=== PATIENT | male | born 1985 | race Caucasian/White ===

== ENCOUNTER 2017-12-07 21:23 | Inpatient (IN) | payer OTHER ==
[2017-12-07] MEDS ORDERED: ALPRAZolam TAB* 0.5 MG PO ONE ×2 (22:19→22:51)
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
[2017-12-07 22:35] LABS: ABS Basophils 0.1 10^3/ul (0-0.2); ABS Eosinophils 0.2 10^3/ul (0-0.6); ABS Lymphocytes 1.8 10^3/ul (1.0-4.8); ABS Monocytes 0.5 10^3/ul (0-0.8); ABS Neutrophils 5.5 10^3/ul (1.5-7.7); ABS Nucleated RBC 0 10^3/ul; Eosinophil % 2.2 % (0-6); Hematocrit 45 % (42-52); Hemoglobin 15.6 g/dl (14.0-18.0); Lymphocyte % 22.7 % (25-47); Mean Corpuscular HGB Conc 34 g/dl (31-36); Mean Corpuscular Hemoglobin 31 pg (27-31); Mean Corpuscular Volume 91 fL (80-94); Mean Platelet Volume 7.4 um3 (7.4-10.4); Nucleated Red Blood Cells % 0.1; Platelet Count 269 10^3/ul (150-450); Red Blood Count 4.97 10^6/ul (4.00-5.40); Red Cell Distribution Width 14 % (10.5-15)
[2017-12-07 22:55] LABS: EGFR Non-African American 121.5 (>60)
[2017-12-07] MEDS ORDERED: Buprenorphine/Naloxone 8-2 MG SL TAB* 1 TAB PO ONE (23:02)
[2017-12-08] MEDS ORDERED: ALPRAZolam TAB* 0.5 MG ONE (01:03)
[2017-12-08] MEDS ORDERED: Haloperidol INJ IV/IM* 5 MG/ML AMP ONE (04:51)
[2017-12-08] MEDS ORDERED: LORazepam INJ* 2 MG/ML 1 ML VIAL ONE (04:51)
[2017-12-08] MEDS ORDERED: Acetaminophen TAB* 325 MG PO PRN (13:32)
[2017-12-08] MEDS ORDERED: Al Hydrox/Mg Hydrox/Simet LIQ* 30 ML UDC PO PRN (13:32)
[2017-12-08] MEDS ORDERED: chlorproMAZINE TAB* 100 MG PO PRN (13:39)
[2017-12-08] MEDS ORDERED: Mouth Piece, Nicotine* 1 EACH CARTRIDGE INH ONE (14:00)
[2017-12-08] MEDS: Gabapentin CAP(*) 300 MG PO SCH ×2 (16:18→20:37)
[2017-12-08] MEDS: Buprenorphine/Naloxone 8-2 MG SL TAB* 1 TAB PO SCH (16:18)
[2017-12-08] MEDS: Nicotine Inhaler* 10 MG AMP INH PRN (16:20)
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
[2017-12-08] MEDS: Nicotine Patch Removal NOTE PATCH OFF SCH (20:43)
[2017-12-09] MEDS: Nicotine PATCH 21 MG/24 HR* PATCH TRANSDERM SCH ×2 (09:49→15:44)
[2017-12-09] MEDS: Gabapentin CAP(*) 300 MG PO SCH ×3 (09:49→20:47)
[2017-12-09] MEDS: Vitamin THERAPEUTIC TAB PO SCH (09:51)
[2017-12-09] MEDS: Buprenorphine/Naloxone 8-2 MG SL TAB* 1 TAB PO SCH ×2 (09:58→20:47)
[2017-12-09] MEDS: clonazePAM TAB(*) 1 MG PO SCH ×2 (14:31→20:46)
--- NOTE | 2017-12-09 15:53 | PN ---
Subjective - Subjective Date of Service: 12/09/17 Service Type: 08940 Hosp care 35 min high complexity Subjective: Patient presents as tangential with mood lability. He denies being agitated or threatening prior to 945. He denies overuse of xanax (however he has admitted this to outpatient providers). He reports frustration in regards to [place] government and anti-aguilar agendas. Health Therapist spoke with ANNABELLE Frances at [facility]. She states concern about his increased decompensation over the past month. Health Therapist left with Layla. Health Therapist spoke with patient's mother, Zoie Crump at [phone]. She reports being surprised by police involvement prior to admission and was not sure what had transpired. She reports noticing that he has been increasingly paranoid and isolated. She validates his concern with current political client. She is concerned about his increased anger and agitated behavior. Objective - Appearance Appearance: Obese Dysmorphic Features: No Hygiene: Mal-odorous Grooming: Disheveled - Behavior Psychomotor Activities: Normal Exhibits Abnormal Movement: No - Attitude and Relatedness Attitude and Relatedness: Psychotically Related Eye Contact: Good - Speech Quality: Pressured Latencies: Normal Quantity: Copious - Mood Patient's Decription of Mood: "Upset" - Affect Observed Affect: Expansive Affect Consistent with: Euphoria - Thought Process Patient's Thought Process: Disorganized, Circumstantial Thought Content: Yes Paranoid Ideation, No Passive Wish, No Suicidal Planning, No Homicidal Ideation - Sensorium Experiencing Hallucinations: No, Sensorium is Clear Type of Hallucinations: Visual: No, Auditory: No, Command: No - Level of Consciousness Level of Consciousness: Alert Orientation: Yes Intact, Yes Orientated to Time, Yes Orientated to Place, Yes Orientated to Person - Impulse Control Impulse Control: Impaired - Insight and Judgement Insight and Judgement: Impaired - Group Participation Particating in Group Activities: No - Medication Management Medication Management Adherence: Yes Assessment - Assessment Merits Inpatient Hospitalization: For Immediate Safety, For Stabilization, Pending Safe DC Plan Inpatient DSM-V Dx: F25.0 Clinical Impression: 32yo white male with hx of schizoaffective d/o and poor tolerance to antipsychotic medications. He presented to ED via law enforcement due to agitated and threatening behavior at outpatient setting. He has impaired insight into recent increase use of benzodiazepine and decompensation in the past two months. He merits hospitalization for immediate safety and stabilization. Plan - Plan Treatment Plan: Name: ETHAN CRUMP Birthdate: 1985 [id number] continue acute intensive psychiatric treatment. may decrease to q30min observation and allow staff pass/computer use. start benzodiazepine taper with clonazepam. hold methylphenidate. continue suboxone and gabapentin. discharge planning to include family and outpatient providers. Continued Medication Management: Different Medication Medications: Current Medications Acetaminophen (Tylenol Tab*) 650 mg PO Q4H PRN PRN Reason: for pain; or Temp >101 F Al Hydrox/Mg Hydrox/Simethicone (Maalox Plus*) 30 ml PO Q4H PRN PRN Reason: INDIGESTION Buprenorphine/Naloxone (Suboxone 8-2 Mg Sl Tab*) 1 tab.sl PO BID [facility] Chlorpromazine HCl (Thorazine Tab*) 100 mg PO Q6H PRN PRN Reason: AGITATION Clonazepam (Klonopin Tab(*)) 1 mg PO TID [facility] Last Admin: 12/09/17 14:31 Dose: 1 mg Gabapentin (Neurontin Cap(*)) 600 mg PO TID [facility] Last Admin: 12/09/17 14:32 Dose: 600 mg Multivitamins (Theragran Tab*) 1 tab PO DAILY [facility] Last Admin: 12/09/17 09:51 Dose: 1 tab Nicotine (Nicotine Inhaler*) 10 mg INH Q2H PRN PRN Reason: CRAVING Last Admin: 12/08/17 16:20 Dose: 10 mg Nicotine (Nicotine Patch 21 Mg/24 Hr*) 1 patch TRANSDERM DAILY@0800 [facility] Last Admin: 12/09/17 09:49 Dose: 1 patch Pharmacy Profile Note (Nicotine Patch Removal Note*) 1 note PATCH OFF 2100 [facility] Last Admin: 12/08/17 20:43 Dose: Not Given taper clonazepam as tolerated - Discharge Plan Discharge Plan: Outpatient Follow Up Outpatient Program: [facility]
[2017-12-09] MEDS: Nicotine Inhaler* 10 MG AMP INH PRN ×3 (17:35→22:34)
[2017-12-09] MEDS: Nicotine Patch Removal NOTE PATCH OFF SCH (20:50)
[2017-12-10] MEDS: clonazePAM TAB(*) 1 MG PO SCH ×3 (08:00→20:16)
[2017-12-10] MEDS: Nicotine PATCH 21 MG/24 HR* PATCH TRANSDERM SCH (08:00)
[2017-12-10] MEDS: Buprenorphine/Naloxone 8-2 MG SL TAB* 1 TAB PO SCH ×2 (08:01→20:17)
[2017-12-10] MEDS: Vitamin THERAPEUTIC TAB PO SCH (08:01)
[2017-12-10] MEDS: Gabapentin CAP(*) 300 MG PO SCH ×3 (08:01→20:16)
--- NOTE | 2017-12-10 14:45 | PN ---
Subjective - Subjective Date of Service: 12/10/17 Service Type: 78110 Hosp care 15 min low complexity Subjective: Ethan is seen in weekend coverage for PAZP, Lili Hill. He is perceived as med-seeking and is eager to see me to talk me into resuming his outpatient methylphenidate and alprazolam therapies. He goes on at some length about how he is intolerant he is to antipsychotic medications and how his current drug regimen has kept him out of the hospital for over two years. "You see, the clonazepam really isn't the same as the alprazolam. The alprazolam has both "gabergic" and "dopamergic" properties that even out my schizoaffective disorder. I can't be taken off it. It may even kill me." Ethan is informed that the team feels that the changes made so far in his medications are warranted by his condition and the circumstances of his admission to the hospital and that we have been in communication with his outpatient provider through the [facility] program, BERNARDO Vega. Ethan is dissatisfied with this and later stalks around the unit, shouting to himself that "people are fucking with the wrong person!" He is escorted to his room where multiple staff attempt to redirect him as he screams that we are lying about him and that he never misused alprazolam. He ultimately cools off without the need for pharmacologic intervention. He denies SI or HI. Objective - Appearance Appearance: Obese Dysmorphic Features: No Hygiene: Normal Grooming: Fairly Well Kept - Behavior Psychomotor Activities: Normal Exhibits Abnormal Movement: No - Attitude and Relatedness Attitude and Relatedness: Hostile Eye Contact: Poor - Speech Quality: Pressured Latencies: Short Quantity: Copious - Mood Patient's Decription of Mood: "Anxious" - Affect Observed Affect: Labile Affect Consistent with: Dysphoria - Thought Process Patient's Thought Process: Goal Directed Thought Content: Yes Paranoid Ideation, No Passive Wish, No Suicidal Planning, No Homicidal Ideation - Sensorium Experiencing Hallucinations: No, Sensorium is Clear Type of Hallucinations: Visual: No, Auditory: No, Command: No - Level of Consciousness Level of Consciousness: Agitated Orientation: Yes Intact, Yes Orientated to Time, Yes Orientated to Place, Yes Orientated to Person - Impulse Control Impulse Control: Poor - Insight and Judgement Insight and Judgement: Impaired - Group Participation Particating in Group Activities: Yes - Medication Management Medication Management Adherence: Yes Assessment - Assessment Merits Inpatient Hospitalization: For Immediate Safety, For Stabilization Inpatient DSM-V Dx: F25.0 Clinical Impression: 32 y.o. single, white male with a history of schizoaffective DO and polysubstance dependance who presents to the hospital, brought in by law enforcement, with severe agitation and psychosis as well as threatening behavior. Plan - Plan Treatment Plan: Name: ETHAN TAM Birthdate: 1985 [id number] The patient is on a benzodiazepine taper with clonazepam. He is receiving scheduled gabapentin and suboxone. Claims to be intolerant to multiple past trials of several antipsychotics. Remains easily agitated. Requires further inpatient-level stabilization. Continued Medication Management: Different Medication Medications: Current Medications Acetaminophen (Tylenol Tab*) 650 mg PO Q4H PRN PRN Reason: for pain; or Temp >101 F Al Hydrox/Mg Hydrox/Simethicone (Maalox Plus*) 30 ml PO Q4H PRN PRN Reason: INDIGESTION Buprenorphine/Naloxone (Suboxone 8-2 Mg Sl Tab*) 1 tab.sl PO BID [facility] Last Admin: 12/10/17 08:01 Dose: 1 tab.sl Chlorpromazine HCl (Thorazine Tab*) 100 mg PO Q6H PRN PRN Reason: AGITATION Clonazepam (Klonopin Tab(*)) 1 mg PO TID [facility] Last Admin: 12/10/17 13:11 Dose: 1 mg Gabapentin (Neurontin Cap(*)) 600 mg PO TID [facility] Last Admin: 12/10/17 13:10 Dose: 600 mg Multivitamins (Theragran Tab*) 1 tab PO DAILY [facility] Last Admin: 12/10/17 08:01 Dose: 1 tab Nicotine (Nicotine Inhaler*) 10 mg INH Q2H PRN PRN Reason: CRAVING Last Admin: 12/09/17 22:34 Dose: 10 mg Nicotine (Nicotine Patch 21 Mg/24 Hr*) 1 patch TRANSDERM DAILY@0800 [facility] Last Admin: 12/10/17 08:00 Dose: 1 patch Nicotine Polacrilex (Nicotine Gum*) 2 mg PO Q2H PRN PRN Reason: CRAVING Pharmacy Profile Note (Nicotine Patch Removal Note*) 1 note PATCH OFF 2100 [facility] Last Admin: 12/09/17 20:50 Dose: Not Given - Discharge Plan Discharge Plan: Inpatient Hospitalization Lab Results - Lab Results Lab Results: 12/07/17 12/07/17 12/08/17 22:30 22:30 01:06 WBC 8.0 RBC 4.97 Hgb 15.6 Hct 45 MCV 91 MCH 31 MCHC 34 RDW 14 Plt Count 269 MPV 7.4 Neut % (Auto) 68.6 Lymph % (Auto) 22.7 L [place] % (Auto) 5.8 Eos % (Auto) 2.2 Baso % (Auto) 0.7 Absolute Neuts (auto) 5.5 Absolute Lymphs (auto) 1.8 Absolute Monos (auto) 0.5 Absolute Eos (auto) 0.2 Absolute Basos (auto) 0.1 Absolute Nucleated RBC 0 Nucleated RBC % 0.1 Sodium 138 Potassium 4.1 Chloride 104 Carbon Dioxide 28 Anion Gap 6 BUN 15 Creatinine 0.75 Est GFR ( Amer) 147.0 Est GFR (Non-Af Amer) 121.5 BUN/Creatinine Ratio 20.0 Glucose 103 H Calcium 9.3 Total Bilirubin 0.50 AST 23 ALT 28 Alkaline Phosphatase 87 Total Protein 6.7 Albumin 4.3 Globulin 2.4 Albumin/Globulin Ratio 1.8 Urine Opiates Screen None detected Ur Barbiturates Screen None detected Ur Phencyclidine Scrn None detected Ur Amphetamines Screen None detected U Benzodiazepines Scrn Presumptive positive A Urine Cocaine Screen None detected U Cannabinoids Screen None detected Serum Alcohol < 10 12/08/17 03:30 WBC RBC Hgb Hct MCV MCH MCHC RDW Plt Count MPV Neut % (Auto) Lymph % (Auto) [place] % (Auto) Eos % (Auto) Baso % (Auto) Absolute Neuts (auto) Absolute Lymphs (auto) Absolute Monos (auto) Absolute Eos (auto) Absolute Basos (auto) Absolute Nucleated RBC Nucleated RBC % Sodium Potassium Chloride Carbon Dioxide Anion Gap BUN Creatinine Est GFR ( Amer) Est GFR (Non-Af Amer) BUN/Creatinine Ratio Glucose Calcium Total Bilirubin AST ALT Alkaline Phosphatase Total Protein Albumin Globulin Albumin/Globulin Ratio Urine Opiates Screen Ur Barbiturates Screen Ur Phencyclidine Scrn Ur Amphetamines Screen U Benzodiazepines Scrn Urine Cocaine Screen U Cannabinoids Screen Serum Alcohol < 10
[2017-12-10] MEDS: Nicotine GUM* 2 MG PO PRN ×3 (15:24→22:18)
[2017-12-10] MEDS: Nicotine Patch Removal NOTE PATCH OFF SCH (20:18)
--- NOTE | 2017-12-11 02:30 | ED ---
Progress - Consult/PCP Time Called: 02:00 Course/Dx - Diagnoses Provider Diagnoses: Schizoaffective disorder Discharge - Sign-Out/Discharge Documenting (check all that apply): Patient Departure - Discharge Plan Condition: Guarded Disposition: PSYCHIATRIC FACILITY-[facility] [place] - Billing Disposition and Condition Condition: GUARDED Disposition: Psychiatric Facility [facility] [place] - Attestation Statements Document Initiated by Scribe: No
[2017-12-11] MEDS: Buprenorphine/Naloxone 8-2 MG SL TAB* 1 TAB PO SCH ×2 (08:44→20:02)
[2017-12-11] MEDS: clonazePAM TAB(*) 1 MG PO SCH ×3 (08:44→20:02)
[2017-12-11] MEDS: Gabapentin CAP(*) 300 MG PO SCH ×3 (08:44→20:02)
[2017-12-11] MEDS: Vitamin THERAPEUTIC TAB PO SCH (08:44)
[2017-12-11] MEDS: Nicotine PATCH 21 MG/24 HR* PATCH TRANSDERM SCH (08:45)
[2017-12-11] MEDS: Nicotine GUM* 2 MG PO PRN ×5 (09:11→22:17)
[2017-12-11] MEDS: Nicotine Patch Removal NOTE PATCH OFF SCH (22:14)
[2017-12-12 08:23] VITALS: BP 117/71
[2017-12-12] MEDS: Nicotine PATCH 21 MG/24 HR* PATCH TRANSDERM SCH (08:36)
[2017-12-12] MEDS: Gabapentin CAP(*) 300 MG PO SCH ×2 (08:37→13:16)
[2017-12-12] MEDS: Vitamin THERAPEUTIC TAB PO SCH (08:38)
[2017-12-12] MEDS: Buprenorphine/Naloxone 8-2 MG SL TAB* 1 TAB PO SCH (08:38)
[2017-12-12] MEDS ORDERED: clonazePAM TAB(*) 1 MG PO SCH (09:00)
[2017-12-12] MEDS: Nicotine GUM* 2 MG PO PRN (09:40)
--- NOTE | 2017-12-12 11:41 | PN ---
[facility]: Group Therapy Note - Service Type Service Type: [id number] Group Psychotherapy - Cognitive Behavioral Group Therapy ( CBT):Patient presented in CBT programming as disorganized and disruptive in discussion and needed repeated redirection to attend to presented materials.
--- NOTE | 2017-12-14 00:43 | DS ---
CC: [facility]; [facility]; and Dr. Partida. DISCHARGE SUMMARY: DATE OF ADMISSION: 12/08/17 DATE OF DISCHARGE: 12/12/17 SUPERVISING PHYSICIAN: Elbert Nickerson MD DISCHARGE DIAGNOSES: Schizoaffective disorder bipolar type, history of opiate use disorder in remiss ion, cluster C personality traits. CONDITION AT TIME OF DISCHARGE: Improved. The patient is calm and behavioral control. His mother i s present for discussion during visiting hours. We discussed patient's presentation over the weekend including hyperactive, impulsive, and intrusive behaviors. We discussed the potential for a mood st abilizer. The patient declines need for further medications. He emphatically states that he has rem ained out of the hospital for 2 years on current medication regimen. He becomes circumstantial in re gards to use of alprazolam. He has presented a written statement that he read to myself in front of his mother. The patient reports desire to be discharged from the hospital. He states that he decomp ensates when in setting such as this. He is denying need for substance use treatment other than curr ent providers at [facility] and [facility]. The patient becomes argumentative, b ut is redirectable. We discussed current medication regimen. The patient states that there is no ev idence in regards to abuse and dependence on benzodiazepines. This publications writer gives evidence to the cont rary. The patient denies being manic or hypomanic. He states he is simply theatrical and able to re main calm. He states that he engaged in inappropriate kissing while on the unit. He attributes this to being lonely and also blames the other patient and states "I do not normally have cute girls payi ng attention to me." The patient has submitted a request for court. Again citing further decompensa tion if hospitalization continues. Due to his mother's presence and advocating for his release and t he patient's current active outpatient treatment discharge was deemed appropriate. MENTAL STATUS EXAM: Massimo is a 32-year-old white male, who appears stated age. He has long dark valdez r and is wearing his own casual clothing. He is adequately groomed. His eye contact is good. He is alert and oriented. Speech is articulate with fluctuating volume. Mood is euthymic and affect is f ull. Thought content circumstantial in regards to being discharged. Thought process is coherent, lo gical and goal directed. Thought content, he denies SI, HI, or . He denies audio or visual halluc inations. There is no evidence of current perceptual disturbances. Concentration is good. Memory i s 06/18. Insight and judgment are fair. Fund of knowledge is adequate. Instructions given to the patient: A. Medications: 1. Clonazepam 1 mg p.o. 3 times a day. The patient was given electronic prescription for a total of 10 tabs until he meets with his outpatient provider. 2. He will continue on Suboxone 8-2 mg b.i.d 3. Gabapentin 600 mg t.i.d B. Diet is regular. C. Activity. Ambulation as tolerated. Tobacco cessation was declined by patient and there are no p ending labs or diagnostic studies. D. Followup care. The patient will follow up at [facility] and has an appointmen t with Chucky Peralta on 12/16/17 at 2:45 PM. He also has an appointment psychiatrist William Torres on 12/22/17 at 2 p.m. He will follow up at [facility] and has an appointment with Mary CHANG on 12/15/17 at 1 p.m. The patient will follow up with his prima care provider, Dr. Partida as needed. E. Substance use followup. The patient is actively engaged with [facility] and [facility] for dual diagnosis maintenance treatment. HOSPITAL COURSE: A. Reason for admission. Patient presented to the emergency department in an agita geri and psychotic state. He required mechanical and chemical restraints due to violent and aggressiv e behavior. Please see history and physical from 12/08/17 for full details. The patient was admitte d to adult behavioral services unit on involuntary status. Code status is full. He was placed on 15 minute check for his safety. We reinstated Suboxone and began tapering benzodiazepine with clonazep am. B. Psychiatric treatment rendered. The patient was quickly decreased to 30 minute observation a nd allowed staff pass and computer use, as he was calm and behavioral control. This changed when he was intrusive and hypersexual. He was returned to 15 minute observation. Collateral information was obtained from his mother. She solidified publications writer's concern about the patient's current medication re gimen. Fortunately, he has been free from opiates use via Suboxone assisted treatment. The patient ad mits to experimenting with IV meth and overuse of Xanax at times. He is careful to differentiate bet ween overuse between abusing his prescription and states that he buys Xanax off the street. The enrique ent also reports that he is active and harm reduction with staff and participates in needle exchange program for his peers. The patient was irritable and demonstrative at times. He was circumstantial in regards to medication changes as stated above. The patient his mother and this publications writer engaged in conversation on day of d ischarge. The patient denied need for further hospitalization as he decided he was not a direct pires er to himself or others. This was validated and verified by his mother, Zoie Crump. The patien t was no longer voicing delusional thoughts. He was not aggressive or threatening due to low utility of inpatient care in an acceptable safety profile. The patient was deemed appropriate for discharge. DAVID THOMAS, PAZ [id number]/CPS #: [id number]
== END 2017-12-12 14:45 | disposition home or self-care (01) | DRG 750 ==
LOC: ED 21:23 → BSU 12-08 06:23
PROVIDERS: ADMIT Hospitalist; ATTEND Psychiatry & Neurology Psychiatry
DX: F25.0 Schizoaffective disorder, bipolar type (principal); F19.20 Other psychoactive substance dependence, uncomplicated; E66.9 Obesity, unspecified; Z62.810 Personal history of physical and sexual abuse in childhood; F17.210 Nicotine dependence, cigarettes, uncomplicated; J30.2 Other seasonal allergic rhinitis; F11.21 Opioid dependence, in remission; Z79.899 Other long term (current) drug therapy; Z86.19 Personal history of other infectious and parasitic diseases; Z81.8 Family history of other mental and behavioral disorders; Z81.3 Family history of other psychoactive substance abuse and dependence; Z68.27 Body mass index [BMI] 27.0-27.9, adult
CPT/HCPCS: 36415; 80053; 80061; 80307; 80320; 83036; 85025; 90853; 99222; 99231; 99233; 99238; 99284; A9270-GY; G0480; J1630; J2060

== ENCOUNTER 2018-02-06 03:16 | Emergency (ER) | payer OTHER ==
[2018-02-06] MEDS ORDERED: LORazepam TAB(*) 1 MG PO ONE (03:31)
[2018-02-06 03:55] LABS: Urine Appearance Clear; Urine Blood Negative (Negative); Urine Color Yellow; Urine Ketones Negative (Negative); Urine Protein Negative (Negative); Urine Specific Gravity 1.019 (1.010-1.030); Urine Urobilinogen Negative (Negative)
--- NOTE | 2018-02-06 04:04 | ED ---
Psychiatric Complaint - HPI Summary HPI Summary: This patient is a 32 year old M brought in by police to ED with a chief complaint of petit laroscarny since [employer]ARMACY SALESPERSON. The patient reported to the police that he was going to get a bad batch of heroin and kill himself. The patient claims that what he said was a joke because he has been clean for 3 years. The patient had 1 4 oz of alcohol but says he had no substances today. The patient reports that PHARMACY SALESPERSON, he went to the gas station to get food. After he paid for the food, the police arrived and the cashier payments received claimed that the patient stole the food. The patient says that the ferdinand that works at the gas station is a homophobic piece of shit. The patient rates the pain 0/10 in severity. Symptoms aggravated by nothing. Symptoms alleviated by nothing. Patient reports that he loves his life and he says that he really needs medications. PMHx of SI without action. - History Of Current Complaint Chief Complaint: EDMentalHealth Time Seen by Provider: 02/06/18 03:27 Hx Obtained From: Patient Onset/Duration: Sudden Onset, Lasting Minutes Severity Currently: None Aggravating Factor(s): Nothing Alleviating Factor(s): Nothing - Allergies/Home Medications Allergies/Adverse Reactions: Allergies Allergy/AdvReac Type Severity Reaction Status Date / Time erythromycin base Allergy Unknown Verified 02/06/18 03:31 Reaction Details Home Medications: Home Medications ALPRAZolam [Alprazolam] 02/06/18 [History] Methylphenidate ER TAB* 02/06/18 [History] PMH/Surg Hx/FS Hx/Imm Hx Cardiovascular History: Denies: Other Cardiovascular Problems/Disorders Respiratory History: Denies: Other Respiratory Problems/Disorders GI History: Reports: Hx Irritable Bowel Sensory History: Denies: Hx Contacts or Glasses, Hx Hearing Aid Opthamlomology History: Denies: Hx Contacts or Glasses Psychiatric History: Reports: Hx Anxiety, Hx Attention Deficit Hyperactivity Disorder, Hx Inpatient Treatment, Hx Community Mental Health Tx, Hx Schizophrenia - schizo-affective disorder, Hx Substance Abuse Denies: Hx Eating Disorder, Hx of Violent Episodes Against Others - Surgical History Surgery Procedure, Year, and Place: Adenoidectomy - Immunization History Date of Tetanus Vaccine: <10 years Date of Influenza Vaccine: does not take Infectious Disease History: No Infectious Disease History: Reports: Hx Hepatitis - Hep C, Hx Human Immunodeficiency Virus (HIV) - Pt has a suspected history, but is unconfirmed Denies: Traveled Outside the [place] in Last 30 Days - Family History Known Family History: Positive: Other Family History: paternal great grandfather heroin use - Social History Alcohol Use: Rare Hx Substance Use: Yes Substance Use Type: Reports: Heroin, Marijuana Substance Use Comment - Amount & Last Used: meth,hash,lsd Hx Tobacco Use: Yes Smoking Status (MU): Heavy Every Day Tobacco Smoker Type: Cigarettes Amount Used/How Often: 1-2 [employer] Have You Smoked in the Last Year: Yes Review of Systems Negative: Fever Positive: Other - police reports that he was going to get a bad batch of heroin and kill himself. The patient claims that what he said was a joke because he has been clean for 3 years. The patient had 1 4 oz of alcohol but says he had no substances today. All Other Systems Reviewed And Are Negative: Yes Physical Exam - Summary Physical Exam Summary: GENERAL: Patient is a well-developed and nourished M who is lying comfortable in the stretcher. Patient is not in any acute respiratory distress. Patient was slurring his words. HEAD AND FACE: Normocephalic EYES: PERRLA, EOMI x 2. EARS: Hearing grossly intact. MOUTH: Oropharynx within normal limits. NECK: Supple, trachea is midline, no adenopathy, no JVD, no carotid bruit. CHEST: Symmetric, no tenderness at palpation LUNGS: Clear to auscultation bilaterally. No wheezing or crackles. CVS: Regular rate and rhythm, S1 and S2 present, no murmurs or gallops appreciated. ABDOMEN: Soft, non-tender. Bowel sounds are normal. No abdominal abnormal pulsations. EXTREMITIES: Full ROM in all major joints, no edema, no cyanosis or clubbing. NEURO: Alert and oriented x 3. No acute neurological deficits. Speech is normal and follows commands. SKIN: Dry and warm PSYCH: Denies SI/HI Triage Information Reviewed: Yes Vital Signs On Initial Exam: Initial Vitals Temp Pulse Resp BP Pulse Ox 97.5 F 41 16 117/86 100 02/06/18 03:20 02/06/18 03:20 02/06/18 03:20 02/06/18 03:20 02/06/18 03:20 Vital Signs Reviewed: Yes Diagnostics - Vital Signs Vital Signs Temp Pulse Resp BP Pulse Ox 02/06/18 03:20 97.5 F 41 16 117/86 100 - Laboratory Lab Results: Lab Results 02/06/18 Range/Units 04:47 Urine Color Yellow Urine Appearance Clear Urine pH 6.0 (5-9) Ur Specific Ericson 1.019 (1.010-1.030) Urine Protein Negative (Negative) Urine Ketones Negative (Negative) Urine Blood Negative (Negative) Urine Nitrate Negative (Negative) Urine Bilirubin Negative (Negative) Urine Urobilinogen Negative (Negative) Ur Leukocyte Esterase Negative (Negative) Urine Glucose Negative (Negative) Result Diagrams: 02/06/18 03:59 02/06/18 03:59 Lab Statement: Any lab studies that have been ordered have been reviewed, and results considered in the medical decision making process. Course/Dx - Course Assessment/Plan: This patient is a 32 year old M brought in by police to ED with a chief complaint of petit larceny since PHARMACY SALESPERSON. The patient reported to the police that he was going to get a bad batch of heroin and kill himself. The patient claims that what he said was a joke because he has been clean for 3 years. In the ED course, the patient was given Ativan. Patient was medically cleared at 0459. This patient will be signed out to Dr. Esquivel, awaiting MHE. - Differential Dx/Clinical Impression Differential Diagnosis/HQI/PQRI: Positive: Other - mental health problem Provider Diagnosis: Mental health problem Discharge - Sign-Out/Discharge Documenting (check all that apply): Sign-Out Patient Signing out patient TO: Mora Esquivel - Discharge Plan Referrals: Rustam Partida MD [Primary Care Provider] - - Attestation Statements Document Initiated by Scribe: Yes Documenting Scribe: Julian Brian Provider For Whom Scribe is Documenting (Include Credential): Rufino Sykes MD Scribe Attestation: Julian Rincon, scribed for Rufino Sykes MD on 02/06/18 at 0526.
[2018-02-06 04:12] LABS: ABS Basophils 0 10^3/ul (0-0.2); ABS Eosinophils 0.2 10^3/ul (0-0.6); ABS Lymphocytes 1.4 10^3/ul (1.0-4.8); ABS Monocytes 0.6 10^3/ul (0-0.8); ABS Neutrophils 5.1 10^3/ul (1.5-7.7); ABS Nucleated RBC 0 10^3/ul; Eosinophil % 2.5 % (0-6); Hematocrit 46 % (42-52); Hemoglobin 15.8 g/dl (14.0-18.0); Lymphocyte % 19.1 % (25-47); Mean Corpuscular HGB Conc 35 g/dl (31-36); Mean Corpuscular Hemoglobin 32 pg (27-31); Mean Corpuscular Volume 91 fL (80-94); Mean Platelet Volume 8.1 um3 (7.4-10.4); Nucleated Red Blood Cells % 0; Platelet Count 247 10^3/ul (150-450); Red Blood Count 4.99 10^6/ul (4.00-5.40); Red Cell Distribution Width 14 % (10.5-15); White Blood Count 7.3 10^3/ul (3.5-10.8)
[2018-02-06 04:32] LABS: EGFR Non-African American 114.4 (>60)
[2018-02-06] MEDS ORDERED: Haloperidol INJ IV/IM* 5 MG/ML AMP ONE (06:20)
[2018-02-06] MEDS ORDERED: diPHENhydraMINE IV* 50 MG/ML 1 ml VIAL (BENADRYL) ONE (06:21)
--- NOTE | 2018-02-06 07:21 | ED ---
Progress - Progress Note Progress Note: Patient was received as a sign out from Dr. Sykes to Dr. Esquivel at 0700 shift change pending MHE. 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 1810 - Patient has awoken at this point and spoken to mental health personnel. - Consult/PCP Time Called: 05:00 Course/Dx - Course Course Of Treatment: Patient was received as a sign out from Dr. Sykes to Dr. Esquivel at 0700 02/06/18 shift change pending MHE. 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 1810 - Patient has awoken at this point and spoken to mental health personnel. Patient will be signed-out to Dr. Dhaliwal at shift change pending disposition. Dx of suicidal ideation. - Diagnoses Provider Diagnoses: Suicidal ideation Discharge - Sign-Out/Discharge Documenting (check all that apply): Sign-Out Patient Signing out patient TO: Silvestre Dhaliwal Receiving patient FROM: Mora Esquivel - Discharge Plan Referrals: Rustam Partida MD [Primary Care Provider] - - Attestation Statements Document Initiated by Scribe: Yes Documenting Scribe: José Antonio Cason Provider For Whom Stefan is Documenting (Include Credential): Mora Esquivel MD Scribe Attestation: José Antonio Rincon , scribed for Mora Esquivel MD on 02/06/18 at 1855. Scribe Documentation Reviewed: Yes Provider Attestation: The documentation as recorded by the José Antonio garrett accurately reflects the service I personally performed and the decisions made by me, Mora Esquivel MD
[2018-02-06 19:22] VITALS: BP 119/70
--- NOTE | 2018-02-06 19:30 | ED ---
Progress - Progress Note Progress Note: Patient was received as a sign out from Dr. Esquivel to Dr. Dhaliwal at shift change pending MHE. - Consult/PCP Time Called: 05:00 Course/Dx - Course Course Of Treatment: Patient was received as a sign out from Dr. Esquivel to Dr. Dhaliwal at shift change pending MHE. After MHE by Dr. Nickerson, the pt will be d/c home with f/u at [facility]. - Diagnoses Provider Diagnoses: Mood disorder Discharge - Sign-Out/Discharge Documenting (check all that apply): Patient Departure - Discharge Plan Condition: Stable Disposition: HOME Patient Education Materials: Mood Disorders (ED) - Attestation Statements Document Initiated by Scribe: Yes Documenting Scribe: Seth Dorman Provider For Whom Scribe is Documenting (Include Credential): Silvestre Dhaliwal MD Scribe Attestation: Seth Rincon, scribed for Silvestre Dhaliwal MD on 02/06/18 at 1934.
== END 2018-02-06 19:47 | disposition home or self-care (01) ==
LOC: ED 03:16
DX: F48.9 Nonpsychotic mental disorder, unspecified (principal); F25.9 Schizoaffective disorder, unspecified; F90.9 Attention-deficit hyperactivity disorder, unspecified type; B19.20 Unspecified viral hepatitis C without hepatic coma
CPT/HCPCS: 36415; 80053; 80307; 80320; 80329; 81003; 84443; 85025; 99285; A9270-GY; G0480; J1200; J1630

== ENCOUNTER → 2018-04-27 12:18 | Emergency (ER) | payer OTHER ==
[~2018-04-27 12:18] MED LIST: LORazepam TAB(*) 1 MG PO ONE; Mouth Piece, Nicotine* 1 EACH CARTRIDGE ONE; Nicotine Inhaler* 10 MG AMP INH PRN
[2018-04-27 13:01] VITALS: BP 139/91
[2018-04-27 13:02] LABS: ABS Basophils 0 10^3/ul (0-0.2); ABS Eosinophils 0.2 10^3/ul (0-0.6); ABS Lymphocytes 1.7 10^3/ul (1.0-4.8); ABS Monocytes 0.6 10^3/ul (0-0.8); ABS Neutrophils 5.5 10^3/ul (1.5-7.7); ABS Nucleated RBC 0 10^3/ul; Eosinophil % 2.1 %; Hematocrit 46 % (42-52); Hemoglobin 15.5 g/dl (14.0-18.0); Lymphocyte % 20.7 %; Mean Corpuscular HGB Conc 34 g/dl (31-36); Mean Corpuscular Hemoglobin 31 pg (27-31); Mean Corpuscular Volume 92 fL (80-94); Mean Platelet Volume 7.9 fL (7.4-10.4); Nucleated Red Blood Cells % 0; Platelet Count 248 10^3/ul (150-450); Red Blood Count 4.95 10^6/ul (4.00-5.40); Red Cell Distribution Width 14 % (10.5-15)
[2018-04-27 13:23] LABS: ALT 21 U/L (7-52); AST 22 U/L (13-39); Albumin 4.1 g/dL (3.2-5.2); Albumin/Globulin Ratio 1.5 (1-3); Alkaline Phosphatase 96 U/L (34-104); Anion Gap 7 mmol/L (2-11); BUN/Creatinine Ratio 25.4 (8-20); Blood Urea Nitrogen 16 mg/dL (6-24); CO2 Carbon Dioxide 23 mmol/L (22-32); Calcium 9.1 mg/dL (8.6-10.3); Chloride 107 mmol/L (101-111); EGFR Non-African American 148.5 (>60); Globulin 2.7 g/dL (2-4); Glucose 116 mg/dL (70-100); Sodium 137 mmol/L (135-145); Total Protein 6.8 g/dL (6.4-8.9)
[2018-04-27 13:25] LABS: Acetaminophen < 15 mcg/mL; Alcohol < 10 mg/dL (<10); Salicylate < 2.50 mg/dL (<30)
[2018-04-27 13:39] LABS: TSH (Thyroid Stimulating Horm) 0.83 mcIU/mL (0.34-5.60)
--- NOTE | 2018-04-27 13:52 | ED ---
Psychiatric Complaint - HPI Summary HPI Summary: The patient is a 32 y/o M presenting to [facility] with a chief complaint of auditory hallucinations increasing since Adderall and Klonopin medications were halted six days ago. He has hx of schizo-affective disorder and ADHD, which were diagnosed when the pt was 19 years old. He was first managing these disorders with antipsychotics, but he developed side effects, including new onset of dyskinesia. He stopped the antipsychotics and moved onto injections, and then further moved onto Adderall and Klonopin for the last seven months. He reports that these medications have helped him feel more like himself, but now since he's been off them, he has been unable to sleep, and the hallucinations are worse. He states, "the voices have been self-critical, saying I'm worthless. " He denies SI and HI. He notes that he was taken off the medications due to a financial burden placed on the clinic he was receiving them from. He also has hx of heroin abuse, which he has been taking Suboxone for the last four years. Rare marijuana, no current substance use, no EtOH. - History Of Current Complaint Chief Complaint: [facility] Time Seen by Provider: 04/27/18 12:26 Hx Obtained From: Patient Onset/Duration: Lasting Days - six, Still Present Timing: Days Severity Initially: Mild Severity Currently: Moderate Aggravating Factor(s): Other - medication prescription discontinued Alleviating Factor(s): Medication Associated Signs And Symptoms: Positive: Hallucinating - auditory voices of self -criticism, Sleep Disturbance Related History: Positive For: Prior Psychiatric Issues - schizo-affective disorder - Allergies/Home Medications Allergies/Adverse Reactions: Allergies Allergy/AdvReac Type Severity Reaction Status Date / Time erythromycin base Allergy Unknown Verified 02/06/18 03:31 Reaction Details PMH/Surg Hx/FS Hx/Imm Hx Endocrine/Hematology History: Denies: Hx Diabetes Cardiovascular History: Denies: Hx Hypertension, Other Cardiovascular Problems/Disorders Respiratory History: Denies: Other Respiratory Problems/Disorders GI History: Reports: Hx Irritable Bowel Sensory History: Denies: Hx Contacts or Glasses, Hx Hearing Aid Opthamlomology History: Denies: Hx Contacts or Glasses Psychiatric History: Reports: Hx Anxiety, Hx Attention Deficit Hyperactivity Disorder, Hx Inpatient Treatment, Hx Community Mental Health Tx, Hx Schizophrenia - schizo-affective disorder, Hx Substance Abuse Denies: Hx Eating Disorder, Hx of Violent Episodes Against Others - Surgical History Surgery Procedure, Year, and Place: Adenoidectomy - Immunization History Date of Tetanus Vaccine: <10 years Date of Influenza Vaccine: does not take Infectious Disease History: No Infectious Disease History: Reports: Hx Hepatitis - Hep C, Hx Human Immunodeficiency Virus (HIV) - Pt has a suspected history, but is unconfirmed Denies: Traveled Outside the [place] in Last 30 Days - Family History Known Family History: Positive: Other Family History: paternal great grandfather heroin use - Social History Lives: Alone Alcohol Use: None Hx Substance Use: Yes Substance Use Type: Reports: Marijuana Substance Use Comment - Amount & Last Used: meth,hash,lsd Hx Tobacco Use: Yes Smoking Status (MU): Heavy Every Day Tobacco Smoker Type: Cigarettes Amount Used/How Often: 1-2 PPD Have You Smoked in the Last Year: Yes Review of Systems Negative: Fever, Chills Negative: Erythema Negative: Sore Throat Negative: Chest Pain Negative: Shortness Of Breath, Cough Negative: Abdominal Pain, Vomiting, Nausea Negative: dysuria, hematuria Negative: Myalgia, Edema Negative: Rash Neurological: Other - POSITIVE: sleep disturbance; NEGATIVE: dizziness Positive: Other - POSITIVE: auditory hallucinations; NEGATIVE: SI, HI All Other Systems Reviewed And Are Negative: Yes Physical Exam - Summary Physical Exam Summary: Constitutional: Well-developed, Well-nourished, Alert. (-) Distressed Skin: Warm, Dry HENT: Normocephalic; Atraumatic Eyes: Conjunctiva normal Neck: Musculoskeletal ROM normal neck. (-) JVD, (-) Stridor, (-) Tracheal deviation Cardio: Rhythm regular, rate normal, Heart sounds normal; Intact distal pulses; The pedal pulses are 2+ and symmetric. Radial pulses are 2+ and symmetric. (-) Murmur Pulmonary/Chest wall: Effort normal. (-) Respiratory distress, (-) Wheezes, (-) Rales Abd: Soft, (-) epigastric tenderness, (-) Distension, (-) Guarding, (-) Rebound Musculoskeletal: (-) Edema Lymph: (-) Cervical adenopathy Neuro: Alert, Oriented x3 Psych: Mood and affect Normal Triage Information Reviewed: Yes Vital Signs On Initial Exam: Initial Vitals Temp Pulse Resp BP Pulse Ox 98.4 F 93 16 139/91 98 01/10/19 12:57 04/27/18 12:57 04/27/18 12:57 04/27/18 12:57 04/27/18 12:57 Vital Signs Reviewed: Yes Diagnostics - Vital Signs Vital Signs Temp Pulse Resp BP Pulse Ox 04/27/18 12:57 98.4 F 93 16 139/91 98 - Laboratory Lab Results: Lab Results 04/27/18 04/27/18 Range/Units 12:57 12:57 WBC 8.0 (3.5-10.8) 10^3/ul RBC 4.95 (4.00-5.40) 10^6/ul Hgb 15.5 (14.0-18.0) g/dl Hct 46 (42-52) % MCV 92 (80-94) fL MCH 31 (27-31) pg MCHC 34 (31-36) g/dl RDW 14 (10.5-15) % Plt Count 248 (150-450) 10^3/ul MPV 7.9 (7.4-10.4) fL Neut % (Auto) 69.6 % Lymph % (Auto) 20.7 % Beckham % (Auto) 7.1 % Eos % (Auto) 2.1 % Baso % (Auto) 0.5 % Absolute Neuts (auto) 5.5 (1.5-7.7) 10^3/ul Absolute Lymphs (auto) 1.7 (1.0-4.8) 10^3/ul Absolute Monos (auto) 0.6 (0-0.8) 10^3/ul Absolute Eos (auto) 0.2 (0-0.6) 10^3/ul Absolute Basos (auto) 0 (0-0.2) 10^3/ul Absolute Nucleated RBC 0 10^3/ul Nucleated RBC % 0 Sodium 137 (135-145) mmol/L Potassium 4.0 (3.5-5.0) mmol/L Chloride 107 (101-111) mmol/L Carbon Dioxide 23 (22-32) mmol/L Anion Gap 7 (2-11) mmol/L BUN 16 (6-24) mg/dL Creatinine 0.63 L (0.67-1.17) mg/dL Est GFR ( Amer) 179.7 (>60) Est GFR (Non-Af Amer) 148.5 (>60) BUN/Creatinine Ratio 25.4 H (8-20) Glucose 116 H (70-100) mg/dL Calcium 9.1 (8.6-10.3) mg/dL Total Bilirubin 0.30 (0.2-1.0) mg/dL AST 22 (13-39) U/L ALT 21 (7-52) U/L Alkaline Phosphatase 96 (34-104) U/L Total Protein 6.8 (6.4-8.9) g/dL Albumin 4.1 (3.2-5.2) g/dL Globulin 2.7 (2-4) g/dL Albumin/Globulin Ratio 1.5 (1-3) TSH 0.83 (0.34-5.60) mcIU/mL Salicylates < 2.50 (<30) mg/dL Acetaminophen < 15 mcg/mL Serum Alcohol < 10 (<10) mg/dL Result Diagrams: 04/27/18 12:57 04/27/18 12:57 Lab Statement: Any lab studies that have been ordered have been reviewed, and results considered in the medical decision making process. Re-Evaluation - Re-Evaluation First Eval Re-Evaluation Time: 17:20 Change: Unchanged Comment: I spoke with the patient concerning discharge. He will not be given Adderall or Klonopin at this time. Course/Dx - Course Course Of Treatment: The patient is a 32 y/o M presenting to [facility] with a chief complaint of auditory hallucinations increasing since Adderall and Klonopin medications were halted six days ago. He has hx of schizo-affective disorder and ADHD, which were first managed with antipsychotics, but he developed side effects, including new onset of dyskinesia. He stopped the antipsychotics and moved onto injections, and then further moved onto Adderall and Klonopin for the last seven months. He reports that these medications have helped him feel more like himself, but now since he's been off them, he has been unable to sleep , and the hallucinations are worse. He denies SI and HI. Also takes Suboxone for heroin hx. Uses marijuana. Upon physical exam, the patient exhibits no acute abnormalities. In the ED course, the patient was given Nicotine inhaler and Ativan. Blood work is unremarkable. I consulted Dr. Beth, psychiatrist, who states that the best course of action would be for the patient for follow up with [facility] and be discharged at this time [1715]. She is also concerned for criminal history. He is diagnosed with hallucinations and schizo-affective schizophrenia. He agrees with this plan and understands the need for return to the ED if necessary. - Differential Dx/Clinical Impression Provider Diagnosis: Hallucinations, Schizo-affective schizophrenia - Physician Notifications Discussed Care Of Patient With: Zenaida Beth - psychiatrist Time Discussed With Above Provider: 17:15 Instructed by Provider To: Other - I spoke with Dr. Beth who suggests that the patient be discharged with follow up to [facility]. Discharge - Sign-Out/Discharge Documenting (check all that apply): Patient Departure - Patient will be discharged home. - Discharge Plan Condition: Stable Disposition: HOME Patient Education Materials: Schizophrenia (ED), Schizoaffective Disorder (ED) Referrals: Rustam Partida MD [Primary Care Provider] - Zenaida Beth MD [Medical Doctor] - (follow up to inquire about medications) [facility] [Other] (please follow up as soon as possible current prescriber is Zenaida Beth) Additional Instructions: RETURN TO THE ED FOR ANY NEW OR WORSENING SYMPTOMS. - Billing Disposition and Condition Condition: STABLE Disposition: Home - Attestation Statements Document Initiated by Stefan: Yes Documenting Scribe: Azra Slaughter Provider For Whom Stefan is Documenting (Include Credential): Dr. Mathieu Mancilla MD Scribe Attestation: IAzra scribed for Dr. Mathieu Mancilla MD on 04/27/18 at 1735. Scribe Documentation Reviewed: Yes Provider Attestation: The documentation as recorded by the Azra garrett accurately reflects the service I personally performed and the decisions made by me, Dr. Mathieu Mancilla MD Status of Scribe Document: Viewed
== END | disposition home or self-care (01) ==
LOC: ED 12:18
DX: F20.9 Schizophrenia, unspecified (principal); R44.0 Auditory hallucinations; F17.210 Nicotine dependence, cigarettes, uncomplicated; G47.9 Sleep disorder, unspecified
CPT/HCPCS: 36415; 80053; 80320; 80329; 84443; 85025; 99284; A9270-GY; G0480

== ENCOUNTER 2018-05-31 14:51 | Inpatient (IN) | payer OTHER ==
[2018-05-31] MEDS ORDERED: NS 0.9% 1000 ML** 1,000 ML IV ONE (15:00)
[2018-05-31] MEDS ORDERED: LORazepam INJ* 2 MG/ML 1 ML VIAL IV PUSH ONE (15:00)
[2018-05-31 15:21] LABS: Urine Appearance Clear; Urine Bilirubin Negative (Negative); Urine Blood Negative (Negative); Urine Color Amber; Urine Glucose Negative (Negative); Urine Ketones 1+ (Negative); Urine Nitrite Negative (Negative); Urine Protein Negative (Negative); Urine Specific Gravity 1.025 (1.010-1.030); Urine Urobilinogen Positive (Negative)
[2018-05-31 15:26] LABS: ABS Basophils 0 10^3/ul (0-0.2); ABS Eosinophils 0 10^3/ul (0-0.6); ABS Lymphocytes 0.8 10^3/ul (1.0-4.8); ABS Monocytes 0.6 10^3/ul (0-0.8); ABS Nucleated RBC 0 10^3/ul; Eosinophil % 0.1 %; Hematocrit 46 % (42-52); Hemoglobin 15.8 g/dl (14.0-18.0); Lymphocyte % 6.9 %; Mean Corpuscular HGB Conc 34 g/dl (31-36); Mean Corpuscular Hemoglobin 31 pg (27-31); Mean Corpuscular Volume 91 fL (80-94); Mean Platelet Volume 7.9 fL (7.4-10.4); Nucleated Red Blood Cells % 0.1; Platelet Count 340 10^3/ul (150-450); Red Blood Count 5.11 10^6/ul (4.00-5.40); Red Cell Distribution Width 14 % (10.5-15); White Blood Count 11.4 10^3/ul (3.5-10.8)
[2018-05-31 15:37] LABS: Barbiturates Urine Screen None Detected (None Detect); Benzodiazepine Urine Screen Presumptive Positive (None Detect); Urine Cannabinoids Screen Presumptive Positive (None Detect)
[2018-05-31 15:41] LABS: ALT 13 U/L (7-52); AST 20 U/L (13-39); Albumin/Globulin Ratio 1.9 (1-3); Alkaline Phosphatase 110 U/L (34-104); Anion Gap 8 mmol/L (2-11); BUN/Creatinine Ratio 21.4 (8-20); Blood Urea Nitrogen 21 mg/dL (6-24); CO2 Carbon Dioxide 25 mmol/L (22-32); Calcium 9.6 mg/dL (8.6-10.3); Chloride 106 mmol/L (101-111); Creatine Kinase 182 U/L (10-223); EGFR African American 107.9 (>60); EGFR Non-African American 89.2 (>60); Globulin 2.7 g/dL (2-4); Glucose 114 mg/dL (70-100); Potassium 4.2 mmol/L (3.5-5.0); Sodium 139 mmol/L (135-145); Total Protein 7.7 g/dL (6.4-8.9)
[2018-05-31 15:54] LABS: Acetaminophen < 15 mcg/mL; Alcohol < 10 mg/dL (<10); Salicylate < 2.50 mg/dL (<30)
[2018-05-31] MEDS ORDERED: KETAMINE HCL* 50 MG/ML 10 ML VIAL ONE (15:56)
--- NOTE | 2018-05-31 16:04 | ED ---
Psychiatric Complaint - HPI Summary HPI Summary: Pt is a 32 y/o male brought in by EMS and police on a 945 who presents to the ED c/o flora. As per EMS, he was at [facility] acting extremely manic and got into a fight with his girlfriend. 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 Pt states he has been off his medications recently , because anti-psychotics make him have tardive dyskinesia, impotency, and weight gain. He denies any current drug use other than marijuana, stating that hes been sober from heroin for 4 years. Pt notes he has not slept in 7 days and has been manic for a while. He denies any SI or HI. PMHx anxiety, ADHD, schizoaffective disorder, SI, and substance abuse. Pt has been admitted multiple times for psychiatric reasons. He notes recent use of prescribed Clonazepam. - History Of Current Complaint Hx Obtained From: Patient, EMS Onset/Duration: Gradual Onset, Still Present Timing: Constant Character: Manic, Angry Aggravating Factor(s): Nothing Alleviating Factor(s): Nothing Associated Signs And Symptoms: Positive: Hostile, Sleep Disturbance Related History: Positive For: Prior Psychiatric Issues Has Suicidal: Denies: Thoughts Has Homicidal: Denies: Thoughts - Allergies/Home Medications Allergies/Adverse Reactions: Allergies Allergy/AdvReac Type Severity Reaction Status Date / Time erythromycin base Allergy Unknown Verified 02/06/18 03:31 Reaction Details Home Medications: Home Medications Buprenorp/Nalox 8-2 MG SL TAB [Suboxone 8-2 mg SL TAB*] 1 tab.sl PO TID [History Confirmed 05/31/18] PMH/Surg Hx/FS Hx/Imm Hx Endocrine/Hematology History: Denies: Hx Diabetes Cardiovascular History: Denies: Hx Hypertension, Other Cardiovascular Problems/Disorders Respiratory History: Denies: Other Respiratory Problems/Disorders GI History: Reports: Hx Irritable Bowel Sensory History: Denies: Hx Contacts or Glasses, Hx Hearing Aid Opthamlomology History: Denies: Hx Contacts or Glasses Psychiatric History: Reports: Hx Anxiety, Hx Attention Deficit Hyperactivity Disorder, Hx Inpatient Treatment, Hx Community Mental Health Tx, Hx Schizophrenia - schizo-affective disorder, Hx Substance Abuse Denies: Hx Eating Disorder, Hx of Violent Episodes Against Others - Surgical History Surgery Procedure, Year, and Place: Adenoidectomy - Immunization History Date of Tetanus Vaccine: <10 years Date of Influenza Vaccine: does not take Immunizations Up to Date: Yes Infectious Disease History: No Infectious Disease History: Reports: Hx Hepatitis - Hep C, Hx Human Immunodeficiency Virus (HIV) - Pt has a suspected history, but is unconfirmed Denies: Traveled Outside the [place] in Last 30 Days - Family History Known Family History: Positive: Other - paternal great grandfather heroin use - Social History Alcohol Use: None Hx Substance Use: Yes Substance Use Type: Reports: Heroin, Marijuana Substance Use Comment - Amount & Last Used: meth,hash,lsd Hx Tobacco Use: Yes Smoking Status (MU): Heavy Every Day Tobacco Smoker Type: Cigarettes Amount Used/How Often: 1-2 PPD Have You Smoked in the Last Year: Yes Review of Systems Positive: Other - lack of sleep Positive: Other - scabs to right hand Positive: Other - Manic, NEGATIVE: SI, HI All Other Systems Reviewed And Are Negative: Yes Physical Exam - Summary Physical Exam Summary: Appearance: Well appearing, no pain distress Skin: warm, dry, reflects adequate perfusion, multiple scabs on his right hand Head/face: normal Eyes: EOMI, AUGUST ENT: mucous membranes dry Neck: supple, non-tender Respiratory: CTA, breath sounds present Cardiovascular: RRR, pulses symmetrical Abdomen: non-tender, soft Bowel Sounds: present Musculoskeletal: normal, strength/ROM intact Neuro: normal, sensory motor intact, A&Ox3 Psych: manic, agitated, no SI, no HI Triage Information Reviewed: Yes Vital Signs On Initial Exam: Initial Vitals Temp Pulse Resp BP Pulse Ox 98.8 F 94 18 136/91 96 05/31/18 15:29 05/31/18 15:29 05/31/18 15:29 05/31/18 15:29 05/31/18 15:29 Vital Signs Reviewed: Yes Diagnostics - Vital Signs Vital Signs Temp Pulse Resp BP Pulse Ox 05/31/18 15:29 98.8 F 94 18 136/91 96 - Laboratory Lab Results: Lab Results 05/31/18 05/31/18 05/31/18 Range/Units 15:09 15:09 15:13 WBC 11.4 H (3.5-10.8) 10^3/ul RBC 5.11 (4.00-5.40) 10^6/ul Hgb 15.8 (14.0-18.0) g/dl Hct 46 (42-52) % MCV 91 (80-94) fL MCH 31 (27-31) pg MCHC 34 (31-36) g/dl RDW 14 (10.5-15) % Plt Count 340 (150-450) 10^3/ul MPV 7.9 (7.4-10.4) fL Neut % (Auto) 87.8 % Lymph % (Auto) 6.9 % Rankin % (Auto) 4.9 % Eos % (Auto) 0.1 % Baso % (Auto) 0.3 % Absolute Neuts (auto) 10.0 H (1.5-7.7) 10^3/ul Absolute Lymphs (auto) 0.8 L (1.0-4.8) 10^3/ul Absolute Monos (auto) 0.6 (0-0.8) 10^3/ul Absolute Eos (auto) 0 (0-0.6) 10^3/ul Absolute Basos (auto) 0 (0-0.2) 10^3/ul Absolute Nucleated RBC 0 10^3/ul Nucleated RBC % 0.1 Sodium (135-145) mmol/L Potassium (3.5-5.0) mmol/L Chloride (101-111) mmol/L Carbon Dioxide (22-32) mmol/L Anion Gap (2-11) mmol/L BUN (6-24) mg/dL Creatinine (0.67-1.17) mg/dL Est GFR ( Amer) (>60) Est GFR (Non-Af Amer) (>60) BUN/Creatinine Ratio (8-20) Glucose (70-100) mg/dL Lactic Acid (0.5-2.0) mmol/L Calcium (8.6-10.3) mg/dL Total Bilirubin (0.2-1.0) mg/dL AST (13-39) U/L ALT (7-52) U/L Alkaline Phosphatase (34-104) U/L Total Creatine Kinase (10-223) U/L Total Protein (6.4-8.9) g/dL Albumin (3.2-5.2) g/dL Globulin (2-4) g/dL Albumin/Globulin Ratio (1-3) TSH Urine Color Nhung Urine Appearance Clear Urine pH 6.0 (5-9) Ur Specific [place] 1.025 (1.010-1.030) Urine Protein Negative (Negative) Urine Ketones 1+ A (Negative) Urine Blood Negative (Negative) Urine Nitrate Negative (Negative) Urine Bilirubin Negative (Negative) Urine Urobilinogen Positive A (Negative) Ur Leukocyte Esterase Negative (Negative) Urine Glucose Negative (Negative) Salicylates (<30) mg/dL Urine Opiates Screen None detected (None Detect) Acetaminophen mcg/mL Ur Barbiturates Screen None detected (None Detect) Ur Phencyclidine Scrn None detected (None Detect) Ur Amphetamines Screen None detected (None Detect) U Benzodiazepines Scrn Presumptive positive A (None Detect) Urine Cocaine Screen None detected (None Detect) U Cannabinoids Screen Presumptive positive A (None Detect) Serum Alcohol (<10) mg/dL 05/31/18 05/31/18 Range/Units 15:13 15:13 WBC (3.5-10.8) 10^3/ul RBC (4.00-5.40) 10^6/ul Hgb (14.0-18.0) g/dl Hct (42-52) % MCV (80-94) fL MCH (27-31) pg MCHC (31-36) g/dl RDW (10.5-15) % Plt Count (150-450) 10^3/ul MPV (7.4-10.4) fL Neut % (Auto) % Lymph % (Auto) % Rankin % (Auto) % Eos % (Auto) % Baso % (Auto) % Absolute Neuts (auto) (1.5-7.7) 10^3/ul Absolute Lymphs (auto) (1.0-4.8) 10^3/ul Absolute Monos (auto) (0-0.8) 10^3/ul Absolute Eos (auto) (0-0.6) 10^3/ul Absolute Basos (auto) (0-0.2) 10^3/ul Absolute Nucleated RBC 10^3/ul Nucleated RBC % Sodium 139 (135-145) mmol/L Potassium 4.2 (3.5-5.0) mmol/L Chloride 106 (101-111) mmol/L Carbon Dioxide 25 (22-32) mmol/L Anion Gap 8 (2-11) mmol/L BUN 21 (6-24) mg/dL Creatinine 0.98 (0.67-1.17) mg/dL Est GFR ( Amer) 107.9 (>60) Est GFR (Non-Af Amer) 89.2 (>60) BUN/Creatinine Ratio 21.4 H (8-20) Glucose 114 H (70-100) mg/dL Lactic Acid 0.8 (0.5-2.0) mmol/L Calcium 9.6 (8.6-10.3) mg/dL Total Bilirubin 0.70 (0.2-1.0) mg/dL AST 20 (13-39) U/L ALT 13 (7-52) U/L Alkaline Phosphatase 110 H (34-104) U/L Total Creatine Kinase 182 (10-223) U/L Total Protein 7.7 (6.4-8.9) g/dL Albumin 5.0 (3.2-5.2) g/dL Globulin 2.7 (2-4) g/dL Albumin/Globulin Ratio 1.9 (1-3) TSH Pending Urine Color Urine Appearance Urine pH (5-9) Ur Specific [place] (1.010-1.030) Urine Protein (Negative) Urine Ketones (Negative) Urine Blood (Negative) Urine Nitrate (Negative) Urine Bilirubin (Negative) Urine Urobilinogen (Negative) Ur Leukocyte Esterase (Negative) Urine Glucose (Negative) Salicylates < 2.50 (<30) mg/dL Urine Opiates Screen (None Detect) Acetaminophen < 15 mcg/mL Ur Barbiturates Screen (None Detect) Ur Phencyclidine Scrn (None Detect) Ur Amphetamines Screen (None Detect) U Benzodiazepines Scrn (None Detect) Urine Cocaine Screen (None Detect) U Cannabinoids Screen (None Detect) Serum Alcohol < 10 (<10) mg/dL Result Diagrams: 05/31/18 15:13 05/31/18 15:13 Lab Statement: Any lab studies that have been ordered have been reviewed, and results considered in the medical decision making process. Re-Evaluation - Re-Evaluation First Eval Re-Evaluation Time: 15:55 Change: Worse Comment: 450 mg Ketamine given for extreme agitation and violence. He was placed in soft restraints. Second Eval Re-Evaluation Time: 17:11 Change: Unchanged Comment: Pt is medically cleared for a MHE. Third Eval Re-Evaluation Time: 17:30 Change: Unchanged Comment: Pt was given 2 mg Ativan. Course/Dx - Course Course Of Treatment: Nurse's notes reviewed. The patient presents manic and agitated. He became more agitated and violent and screaming at the staff and throwing items. He required intramuscular ketamine for this agitation/excited delirium. He calmed following this and soft restraints that had been applied with ketamine were quickly removed. He did require additional Ativan. He is well known to the mental health staff and will require admission for his psychosis/flora. No elevation of CPK or additional medical needs were found. He was given IV hydration. Mental health evaluation was completed and he will be admitted on an involuntary basis to mental health. - Differential Dx/Clinical Impression Differential Diagnosis/HQI/PQRI: Positive: Acute Psychosis, Anxiety, Drug Overdose/Unintentional, Schizophrenia, Other - Dehydration, rhabdomyolysis, drug effect Provider Diagnosis: Schizoaffective disorder, Violent behavior - Physician Notifications Discussed Care Of Patient With: Elbert Nickerson Time Discussed With Above Provider: 18:00 Instructed by Provider To: Admit As Inpatient - Critical Care Time Critical Care Time: 30-74 min - CCT is EXCLUSIVE of separately billable procedures. Discharge - Sign-Out/Discharge Documenting (check all that apply): Patient Departure - Admit Patient Received Moderate/Deep Sedation with Procedure: No - Discharge Plan Condition: Fair Disposition: PSYCHIATRIC FACILITY-[facility] Referrals: Rustam Partida MD [Primary Care Provider] - - Billing Disposition and Condition Condition: FAIR Disposition: Psychiatric Facility [facility] [place] - Attestation Statements Document Initiated by Scribe: Yes Documenting Scribe: Desi Thomas Provider For Whom Scribe is Documenting (Include Credential): Aaron Preston MD Scribe Attestation: Desi Rincon, scribed for Aaron Preston MD on 05/31/18 at 1805. Scribe Documentation Reviewed: Yes Provider Attestation: The documentation as recorded by the Desi garrett accurately reflects the service I personally performed and the decisions made by me, Aaron Preston MD Status of Scribe Document: Viewed
[2018-05-31] MEDS ORDERED: Buprenorp/Nalox 8-2 MG SL TAB.SL PO ONE (18:09)
[2018-05-31] MEDS ORDERED: Mouth Piece, Nicotine* 1 EACH CARTRIDGE ONE (20:19)
[2018-05-31] MEDS ORDERED: Nicotine Inhaler* 10 MG AMP ONE (20:19)
[2018-05-31] MEDS: Nicotine Inhaler* 10 MG AMP INH PRN (20:28)
[2018-05-31] MEDS: Nicotine PATCH 21 MG/24 HR* PATCH TRANSDERM ONE ×2 (21:49→23:46)
[2018-05-31] MEDS ORDERED: Buprenorp/Nalox 8-2 MG SL TAB.SL PO SCH (22:00)
--- NOTE | 2018-05-31 22:34 | ED ---
Progress - Progress Note Progress Note: Patient was admitted by Dr. Andrade for psychosis. - Consult/PCP Time Called: 15:29 Re-Evaluation - Re-Evaluation First Eval Re-Evaluation Time: 15:55 Change: Worse Comment: 450 mg Ketamine given for extreme agitation and violence. He was placed in soft restraints. Second Eval Re-Evaluation Time: 17:11 Change: Unchanged Comment: Pt is medically cleared for a MHE. Third Eval Re-Evaluation Time: 17:30 Change: Unchanged Comment: Pt was given 2 mg Ativan. Course/Dx - Course Course Of Treatment: Nurse's notes reviewed. The patient presents manic and agitated. He became more agitated and violent and screaming at the staff and throwing items. He required intramuscular ketamine for this agitation/excited delirium. He calmed following this and soft restraints that had been applied with ketamine were quickly removed. He did require additional Ativan. He is well known to the mental health staff and will require admission for his psychosis/flora. No elevation of CPK or additional medical needs were found. He was given IV hydration. Mental health evaluation was completed and he will be admitted on an involuntary basis to mental health. - Diagnoses Provider Diagnoses: Psychosis - Provider Notifications Time Discussed With Above Provider: 18:00 Instructed by Provider To: Admit As Inpatient - Critical Care Time Critical Care Time: 30-74 min - CCT is EXCLUSIVE of separately billable procedures. Discharge - Sign-Out/Discharge Documenting (check all that apply): Patient Departure - Admit to [facility] Patient Received Moderate/Deep Sedation with Procedure: No - Discharge Plan Condition: Fair Disposition: PSYCHIATRIC FACILITY-[facility] [place] Referrals: Rustam Partida MD [Primary Care Provider] - - Attestation Statements Document Initiated by Scribe: Yes Documenting Scribe: Stephanie Eduardo Provider For Whom Scribe is Documenting (Include Credential): Dr. Nik Dumont MD Scribe Attestation: I, Stephanie Eduardo, donaldoed for Dr. Nik Dumont MD on 05/31/18 at 3053. Status of Scribe Document: Ready
[2018-06-01] MEDS ORDERED: diPHENhydraMINE PO* 50 MG ONE (00:20)
[2018-06-01] MEDS ORDERED: Ziprasidone * 20 MG CAP (generic Geodon) PO ONE ×2 (00:20→03:30)
[2018-06-01] MEDS ORDERED: Ziprasidone IM INJ* 20 MG/ML VIAL ONE (00:20)
[2018-06-01] MEDS ORDERED: diPHENhydraMINE IV* 50 MG/ML 1 ml VIAL (BENADRYL) ONE (00:21)
[2018-06-01] MEDS ORDERED: diPHENhydraMINE PO* 50 MG PO ONE (03:30)
[2018-06-01] MEDS ORDERED: Acetaminophen TAB* 325 MG PO PRN (04:19)
[2018-06-01] MEDS ORDERED: Al Hydrox/Mg Hydrox/Simet LIQ* 30 ML UDC PO PRN (04:20)
[2018-06-01] MEDS: Multivitamins/Minerals TAB PO SCH (11:34)
[2018-06-01] MEDS: Buprenorp/Nalox 8-2 MG FILM 1 EACH SL FILM SCH ×3 (11:34→20:10)
[2018-06-01] MEDS: Nicotine GUM* 2 MG PO PRN ×3 (13:41→20:42)
[2018-06-01] MEDS: Nicotine Inhaler* 10 MG AMP INH PRN ×2 (13:41→17:59)
[2018-06-01] MEDS: Lithium Carbonate TAB* 300 MG PO SCH ×2 (13:41→20:10)
[2018-06-01] MEDS: Mouth Piece, Nicotine* 1 EACH CARTRIDGE INH PRN ×2 (13:41→17:59)
[2018-06-01] MEDS ORDERED: Mouth Piece, Nicotine* 1 EACH CARTRIDGE ONE (17:55)
[2018-06-01] MEDS: chlorproMAZINE TAB* 100 MG PO PRN (17:59)
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
[2018-06-01] MEDS: hydrOXYzine HCL TAB* 50 MG PO PRN (20:12)
[2018-06-02] MEDS ORDERED: Mouth Piece, Nicotine* 1 EACH CARTRIDGE ONE ×2 (00:59→22:54)
[2018-06-02] MEDS: Mouth Piece, Nicotine* 1 EACH CARTRIDGE INH PRN ×2 (01:00→22:55)
[2018-06-02] MEDS: Nicotine GUM* 2 MG PO PRN ×6 (01:01→22:55)
[2018-06-02] MEDS: Nicotine Inhaler* 10 MG AMP INH PRN ×6 (01:01→22:55)
[2018-06-02] MEDS: Multivitamins/Minerals TAB PO SCH (08:34)
[2018-06-02] MEDS: Buprenorp/Nalox 8-2 MG FILM 1 EACH SL FILM SCH ×3 (08:35→22:51)
[2018-06-02] MEDS: Lithium Carbonate TAB* 300 MG PO SCH ×2 (08:35→22:50)
[2018-06-02] MEDS: hydrOXYzine HCL TAB* 50 MG PO PRN ×3 (09:16→23:43)
[2018-06-02] MEDS: Gabapentin CAP(*) 400 MG PO PRN ×3 (14:21→17:31)
--- NOTE | 2018-06-02 14:41 | PN ---
Subjective - Subjective Date of Service: 06/02/18 Service Type: 89301 Hosp care 35 min high complexity Subjective: Patient is cooperative and reports noting improvement in thought organization. He states he can "tell that the lithium is already working." Patient reports internal conflict to utilize prn thorazine due to fear of TD and impotence. Informed that low-dose is more sedative than antipsychotic. He continues to be circumstantial about stimulants and benzodiazepines and states he was hoping to be prescribed these if he was compliant with lithium. He states "I'm trying to meet you guys retirement but I feel like you guys are trying to destroy me." He states understanding that starting controlled prescriptions would result in not having a provider to continue until he is fully engaged with Dr Vance and [facility]. He states he will likely "have to buy them off the street and risk temptation to buy heroin." He agrees to trial of gabapentin prn for anxiety. Patient reports desire to utilize guitar and comfort room. He is encouraged to exhibit behavioral control in order to obtain these privileges. Objective - Appearance Appearance: Well Developed/Nourished Dysmorphic Features: No Hygiene: Normal Grooming: Fairly Well Kept - Behavior Psychomotor Activities: Abnormal-Increased - tics, patient denies problematic - Attitude and Relatedness Attitude and Relatedness: Cooperative Eye Contact: Fair - Speech Quality: Pressured Latencies: Normal Quantity: Copious - Mood Patient's Decription of Mood: "Fine" - Affect Observed Affect: Labile Affect Consistent with: Euphoria - Thought Process Patient's Thought Process: Tangential, Circumstantial, Over Inclusive Thought Content: Yes Paranoid Ideation, No Passive Wish, No Suicidal Planning, No Homicidal Ideation - Sensorium Experiencing Hallucinations: No, Sensorium is Clear Type of Hallucinations: Visual: No, Auditory: No, Command: No - Level of Consciousness Level of Consciousness: Alert Orientation: Yes Intact, Yes Orientated to Time, Yes Orientated to Place, Yes Orientated to Person - Impulse Control Impulse Control: Poor - Insight and Judgement Insight and Judgement: Poor - Group Participation Particating in Group Activities: Yes - Medication Management Medication Management Adherence: Yes Assessment - Assessment Merits Inpatient Hospitalization: For Immediate Safety, For Stabilization, Consolidate Improvements Inpatient DSM-V Dx: F25.0 Clinical Impression: 32yo wm, domiciled, disabled with history of schizoaffective d/o, bipolar type and poor adherence to treatment who presented to outpatient clinic in manic state requiring police intervention. He was combative and agitated in ED as well as upon arrival to [facility], requiring emergency medications. He is opposed to antipsychotics due to past experiences of TD and impotence. He is agreeing to trial of lithium for mood stabilization. He is in remission from opiate use due to suboxone treatment. Patient merits hospitalization for immediate safety and stabilization. Plan - Plan Treatment Plan: Name: ETHAN TAM Birthdate: 1985 [id number] continue acute intensive psychiatric treatment. continue lithium, obtain lithium level on 06/04/18. add gabapentin prn anxiety. continue other medications. discharge planning to include outpatient providers. Continued Medication Management: Different Medication Medications: Current Medications Acetaminophen (Tylenol Tab*) 650 mg PO Q4H PRN PRN Reason: PAIN; OR TEMP >101 Al Hydrox/Mg Hydrox/Simethicone (Maalox Plus*) 30 ml PO Q4H PRN PRN Reason: INDIGESTION Buprenorphine/Naloxone (Suboxone 8 Mg-2 Mg Sl Film) 1 each SL FILM TID [facility] Last Admin: 06/02/18 14:21 Dose: 1 each Chlorpromazine HCl (Thorazine Tab*) 100 mg PO Q6H PRN PRN Reason: severe agitation Last Admin: 06/01/18 17:59 Dose: 100 mg Device (Nicotine Mouth Piece*) 1 each INH ONCE PRN PRN Reason: CRAVING Last Admin: 06/02/18 01:00 Dose: 1 each Gabapentin (Neurontin Cap(*)) 400 mg PO QID PRN PRN Reason: AGITATION/ANXIETY Last Admin: 06/02/18 14:21 Dose: 400 mg Hydroxyzine HCl (Atarax Tab*) 50 mg PO Q4H PRN PRN Reason: agitation/anxiety Last Admin: 06/02/18 09:16 Dose: 50 mg [place] Carbonate ([place] Carbonate Tab*) 300 mg PO BID [facility] Last Admin: 06/02/18 08:35 Dose: 300 mg Multivitamins/Minerals (Theragran/Minerals Tab*) 1 tab PO DAILY [facility] Last Admin: 06/02/18 08:34 Dose: 1 tab Nicotine (Nicotine Inhaler*) 10 mg INH Q2H PRN PRN Reason: CRAVING Last Admin: 06/02/18 13:03 Dose: 10 mg Nicotine Polacrilex (Nicotine Gum*) 2 mg PO Q2H PRN PRN Reason: CRAVING Last Admin: 06/02/18 13:03 Dose: 2 mg - Discharge Plan Discharge Plan: Inpatient Hospitalization Outpatient Program: [facility]
[2018-06-02] MEDS: chlorproMAZINE TAB* 100 MG PO PRN (15:12)
[2018-06-03] MEDS: Gabapentin CAP(*) 400 MG PO PRN ×4 (01:11→18:22)
[2018-06-03] MEDS: Nicotine Inhaler* 10 MG AMP INH PRN ×8 (02:22→23:26)
[2018-06-03] MEDS: Nicotine GUM* 2 MG PO PRN ×9 (02:22→23:26)
[2018-06-03] MEDS: chlorproMAZINE TAB* 100 MG PO PRN ×2 (02:50→15:55)
[2018-06-03] MEDS: Lithium Carbonate TAB* 300 MG PO SCH ×2 (08:40→20:30)
[2018-06-03] MEDS: Multivitamins/Minerals TAB PO SCH (08:41)
[2018-06-03] MEDS: Buprenorp/Nalox 8-2 MG FILM 1 EACH SL FILM SCH ×3 (08:41→20:31)
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
[2018-06-03] MEDS: hydrOXYzine HCL TAB* 50 MG PO PRN ×2 (15:55→20:30)
[2018-06-04] MEDS: Nicotine Inhaler* 10 MG AMP INH PRN ×7 (02:00→21:46)
[2018-06-04] MEDS: Nicotine GUM* 2 MG PO PRN ×7 (02:00→21:45)
[2018-06-04] MEDS: Lithium Carbonate TAB* 300 MG PO SCH ×2 (08:52→20:12)
[2018-06-04] MEDS: Gabapentin CAP(*) 400 MG PO PRN ×3 (08:52→20:15)
[2018-06-04] MEDS: Multivitamins/Minerals TAB PO SCH (08:52)
[2018-06-04] MEDS: Buprenorp/Nalox 8-2 MG FILM 1 EACH SL FILM SCH ×3 (08:54→20:13)
[2018-06-04] MEDS: hydrOXYzine HCL TAB* 50 MG PO PRN ×3 (11:42→20:13)
[2018-06-05] MEDS: Gabapentin CAP(*) 400 MG PO PRN ×2 (00:05→08:42)
[2018-06-05] MEDS: hydrOXYzine HCL TAB* 50 MG PO PRN ×2 (00:05→01:01)
[2018-06-05] MEDS: Nicotine GUM* 2 MG PO PRN ×5 (00:05→08:43)
[2018-06-05] MEDS: Nicotine Inhaler* 10 MG AMP INH PRN ×5 (00:05→08:43)
[2018-06-05 08:04] VITALS: BP 118/82
[2018-06-05] MEDS: Multivitamins/Minerals TAB PO SCH (08:42)
[2018-06-05] MEDS: Lithium Carbonate TAB* 300 MG PO SCH (08:42)
[2018-06-05] MEDS: Buprenorp/Nalox 8-2 MG FILM 1 EACH SL FILM SCH (08:47)
--- NOTE | 2018-06-05 22:15 | DS ---
AMENDED REPORT NOW INCLUDES COSIGNER DESIGNATION CC: [facility]; [facility] * DISCHARGE SUMMARY: DATE OF ADMISSION: 06/01/18 DATE OF DISCHARGE: 06/05/18 SUPERVISING PSYCHIATRIST: Dr. Elbert Nickerson.* (DICTATED BY DAVID THOMAS NP) DISCHARGE DIAGNOSES: 1. Schizoaffective disorder, bipolar type. 2. Opiate use disorder, in remission with medication-assisted treatment. 3. Cannabis use disorder. 4. Tobacco use disorder. CONDITION AT TIME OF DISCHARGE: Improved. The patient is euthymic with bright affect. He is able to participate in conversation. He has been in behavior control. There are reports that he was asking peer for benzodiazepine, but denies that this was the case. He has stated that he will continue with current prescribed medications including lithium and Suboxone and looks forward to meeting with psychiatrist, Dr. Vance, when he is assigned to her. He has been using gabapentin p.r.n. for anxiety. He states understanding of rationale to avoid stimulants and benzodiazepines at this time. Massimo denies hypomania at this time. He has been observed to be very active and dramatic on the unit. He identifies that this is part of his personality. He has been sleeping well and denies suicidal ideation or passive wish. He denies HI or . He reports desire to be discharged today to resume outpatient care. I spoke with his mother who is currently vacationing in [place] and discussed presentation. She thanked me for the call and stated understanding of discharge plan. This tech writer facilitated Medicaid taxi to continuous pickling line pickler the patient for discharge. He was given 2 weeks' supply of medications with 1 refill with the understanding to call tech writer should he need a refill before he follows up with Dr. Vance. MENTAL STATUS EXAM: Massimo is a 32-year-old white male who appears stated age. He has long, dark hair and is wearing his own casual clothing. He is adequately groomed. His eye contact is good. He is alert and oriented x3. His speech is normal rate, rhythm, and volume. Mood is euthymic with full range of affect. Thought content circumstantial in regards to being discharged. Thought process is coherent, logical, and goal directed. He denies SI, HI, or . He denies auditory or visual hallucinations. There is no evidence of perceptual disturbances. Concentration is good. Memory is 3/3. Insight and judgment are fair. Fund of knowledge is excellent. INSTRUCTIONS GIVEN TO THE PATIENT: A. Medications: Gabapentin 400 mg p.o. 4 times a day p.r.n. anxiety; lithium carbonate 300 mg p.o. b.i.d.; nicotine gum 2 mg p.o. q.2 hours p.r.n. craving; nicotine patch 21 mg 1 patch daily, remove at bedtime. B. Diet is regular. C. Activity: Ambulation as tolerated. Tobacco cessation was provided to the patient. There are no pending labs or diagnostic studies. D. Followup care: The patient will follow up [facility] and has an appointment tomorrow with Salina Bacon. He can follow up with his primary care provider, Dr. Partida, as needed and he can follow up with [facility] for Suboxone treatment. E. Substance use followup: The patient is already engaged with [facility] for medication-assisted treatment. HOSPITAL COURSE: Part A. Reason for admission: The patient presented to the emergency department via police after presenting to [facility] in crisis. He required police intervention due to behavioral disturbance while at the clinic. While in the ED, he was aggressive, agitated, and required emergency medications and restraint. Please see full H and P dictated by this tech writer on 06/01/18. Part B. Psychiatric treatment rendered: The patient was admitted to adult behavioral services unit on involuntary status. Code status was full. He was placed on 15-minute checks for safety. He agreed to continue with Suboxone and to start a trial of lithium. He only agreed to 300 mg p.o. b.i.d. On 06/04/18 , he had a lithium trough of 0.19. While on the unit, the patient was compliant with medications, he started lithium, and noted improvement in thought organization. He was circumstantial about stimulants for ADHD and benzodiazepines. He allowed tech writer to contact psychiatrist at [facility] to discuss prescriptive planning. He stated understanding of refrain from starting medications that would not be continued by receiving provider. While on the unit, the patient was intermittently helpful to peers and at times antagonizing. He benefited from hospital setting in that he had to refrain from cannabis use and had minimal contact with his girlfriend. Massimo endorses highly emotionally reactive relationship between the two of them. On day of discharge, the patient allowed tech writer to discuss discharge plan with his mother. As stated above, I spoke with Zoie Crump at [phone]. She stated understanding of discharge plan and medications prescribed. The patient denied need for further hospitalization as he stated he was not a direct danger to himself or others. The patient was not voicing paranoid or delusional ideation. He was not aggressive or threatening. Due to low utility of inpatient care and an acceptable safety profile, the patient was deemed appropriate for discharge. DAVID THOMAS NP [id number]/[facility] #: [id number] MAJOR
== END 2018-06-05 11:32 | disposition home or self-care (01) | DRG 750 ==
LOC: ED 14:51 → BSU 22:25
PROVIDERS: ADMIT Psychiatry & Neurology Psychiatry; ATTEND Psychiatry & Neurology Psychiatry
DX: F25.0 Schizoaffective disorder, bipolar type (principal); F12.90 Cannabis use, unspecified, uncomplicated; F17.210 Nicotine dependence, cigarettes, uncomplicated; F11.21 Opioid dependence, in remission; B19.20 Unspecified viral hepatitis C without hepatic coma; J30.2 Other seasonal allergic rhinitis; Z79.899 Other long term (current) drug therapy
CPT/HCPCS: 36415; 80053; 80178; 80307; 80320; 80329; 81003; 82550; 83605; 84443; 85025; 99222; 99231; 99233; 99238; 99284; A9270-GY; G0480; J1200; J2060; J3486

== ENCOUNTER 2018-08-05 21:55 | Emergency (ER) | payer OTHER ==
[2018-08-05 22:10] VITALS: BP 125/94
== END 2018-08-05 22:51 | disposition left against medical advice (07) ==
LOC: ED 21:55
DX: Z53.21 Procedure and treatment not carried out due to patient leaving prior to being seen by health care provider (principal)